=== PATIENT | male | born 1945 | race Hispanic/Latino ===

== ENCOUNTER 2021-06-09 15:06 | Inpatient (IN) | payer OTHER ==
[~2021-06-09] VITALS: Ht 154.9 cm; Wt 83.2 kg
[2021-06-09 16:17] VITALS: BP 156/79
[2021-06-09 16:28] LABS: HEMATOCRIT 31.4 % (42-54); MEAN CORPUSCULAR HGB CONC 32.5 g/dL (32.0-36.0); MEAN CORPUSCULAR VOLUME 95.4 fL (79-99); RED BLOOD CELL COUNT(AUTO) 3.29 MIL/uL (4.50-6.20); RED CELL DISTRIBUTION WIDTH 14.5 % (11.0-15.5); WHITE BLOOD COUNT (AUTO) 12.4 K/uL (4.8-10.8)
[2021-06-09] MEDS ORDERED: DEXTROSE 50%-WATER 50 ML DISP.SYRIN IV PRN (16:30)
[2021-06-09] MEDS ORDERED: DiphenhydrAMINE HCL 50 MG/ML VIAL IV PRN (16:30)
[2021-06-09] MEDS ORDERED: GLUCAGON 1MG KIT 1 MG ML IM PRN (16:30)
[2021-06-09] MEDS: INSULIN HUMULIN R 100 UNIT/ML 3ML SQ SCH ×2 (16:30→21:06)
[2021-06-09] MEDS ORDERED: ONDANSETRON 4MG INJ IV PRN (16:30)
[2021-06-09] MEDS ORDERED: ACETAMINOPHEN 325 MG TAB PO PRN ×2 (16:30)
[2021-06-09] MEDS ORDERED: LACTATED RINGERS 1000ML 1,000 ML IV SCH (16:30)
[2021-06-09] MEDS ORDERED: HYDRALAZINE 20MG/ML VIAL IV PRN (16:30)
[2021-06-09 16:40] LABS: INR 1.11 (0.85-1.15)
[2021-06-09 16:42] LABS: PARTIAL THROMBOPLASTIN TIME 69.9 SEC (26.3-35.5)
[2021-06-09 16:48] LABS: CREATININE 1.4 mg/dL (0.5-1.5); POTASSIUM 4.5 mmol/L (3.5-5.1)
[2021-06-09] MEDS ORDERED: VALS320T16 PO (17:52)
[2021-06-09] MEDS ORDERED: ATOR40TA69 PO (17:52)
[2021-06-09] MEDS ORDERED: ASPI-1197 PO (17:52)
[2021-06-09] MEDS ORDERED: METO100T14 PO (17:52)
[2021-06-09] MEDS ORDERED: METF-446 PO (17:52)
[2021-06-09] MEDS ORDERED: TAMS-1 PO (17:52)
[2021-06-09] MEDS ORDERED: LACTATED RINGERS 1000ML 1,000 ML IV ONE (20:40)
[2021-06-09 20:45] VITALS: BP 112/66
[2021-06-09] MEDS: LACTATED RINGERS 1000ML 1,000 ML IV SCH (20:53)
[2021-06-09] MEDS: FAMOTIDINE 20MG VIAL IV SCH (20:54)
[2021-06-09 23:54] VITALS: BP 115/64
[2021-06-09] MEDS: HEPARIN 25,000 UNITS/250ML D5W 250 ML IV SCH (23:57)
[2021-06-10 02:42] LABS: ALBUMIN 3.1 g/dL (3.5-5.0); BILIRUBIN,TOTAL 0.7 mg/dL (0.2-1.0); CREATININE 1.3 mg/dL (0.5-1.5); POTASSIUM 3.7 mmol/L (3.5-5.1); TOTAL PROTEIN, SERUM 6.4 g/dL (6.0-8.3)
[2021-06-10 02:44] LABS: BASOPHILS % (AUTO) 0.9 % (0.0-5.0); EOSINOPHILS % (AUTO) 1.1 % (0.0-8.0); HEMATOCRIT 26.6 % (42-54); MEAN CORPUSCULAR HEMOGLOBIN 30.6 pg (27.0-33.0); MEAN CORPUSCULAR HGB CONC 32.7 g/dL (32.0-36.0); MEAN CORPUSCULAR VOLUME 93.7 fL (79-99); MONOCYTES % (AUTO) 9.7 % (3.0-13.0); PLATELET COUNT (AUTO) 171 K/uL (130-400); RED BLOOD CELL COUNT(AUTO) 2.84 MIL/uL (4.50-6.20); RED CELL DISTRIBUTION WIDTH 14.3 % (11.0-15.5); WHITE BLOOD COUNT (AUTO) 10.7 K/uL (4.8-10.8)
[2021-06-10] MEDS: HEPARIN 25,000 UNITS/250ML D5W 250 ML IV SCH ×2 (04:03→09:01)
[2021-06-10 04:11] VITALS: BP 112/66
[2021-06-10] MEDS: INSULIN HUMULIN R 100 UNIT/ML 3ML SQ SCH ×4 (05:00→20:16)
[2021-06-10 08:21] VITALS: BP 112/61
[2021-06-10] MEDS: FAMOTIDINE 20MG VIAL IV SCH ×2 (09:50→20:08)
[2021-06-10] MEDS ORDERED: TICAGRELOR 90 MG TABLET PO SCH ×2 (10:57→21:00)
[2021-06-10 11:08] VITALS: BP 97/53
[2021-06-10 11:20] LABS: HEMATOCRIT 28.9 % (42-54)
[2021-06-10] MEDS: ASPIRIN 81MG CHEW TAB PO SCH (11:22)
[2021-06-10 16:17] VITALS: BP 97/59
[2021-06-10] MEDS: METOPROLOL TARTRATE 50 MG TAB PO SCH (20:08)
[2021-06-10] MEDS: ATORVASTATIN 40 MG TABLET PO SCH (20:08)
[2021-06-10 21:01] VITALS: BP 129/65
[2021-06-10 23:48] VITALS: BP 128/75
[2021-06-11] VITALS (29 sets, daily range): BP systolic 84–166; BP diastolic 58–82
[2021-06-11] MEDS ORDERED: METOPROLOL TARTRATE 1 MG/ML 5ML VIAL IV ONE ×6 (01:00→05:30)
[2021-06-11 01:19] LABS: HEMATOCRIT 28.7 % (42-54); MEAN CORPUSCULAR HEMOGLOBIN 30.7 pg (27.0-33.0); MEAN CORPUSCULAR HGB CONC 32.4 g/dL (32.0-36.0); MEAN CORPUSCULAR VOLUME 94.7 fL (79-99); PLATELET COUNT (AUTO) 178 K/uL (130-400); RED BLOOD CELL COUNT(AUTO) 3.03 MIL/uL (4.50-6.20); RED CELL DISTRIBUTION WIDTH 14.4 % (11.0-15.5); WHITE BLOOD COUNT (AUTO) 13.4 K/uL (4.8-10.8)
[2021-06-11 01:32] LABS: BASOPHILS % (AUTO) 0.6 % (0.0-5.0); EOSINOPHILS % (AUTO) 0.7 % (0.0-8.0); LYMPHOCYTES % (AUTO) 13.2 % (21.0-51.0); MONOCYTES % (AUTO) 6.6 % (3.0-13.0); NEUTROPHILS % (AUTO) 78.5 % (40.0-77.0)
[2021-06-11 01:35] LABS: CREATININE 1.4 mg/dL (0.5-1.5); POTASSIUM 3.6 mmol/L (3.5-5.1)
[2021-06-11 01:45] LABS: ALBUMIN 3.6 g/dL (3.5-5.0); BILIRUBIN,TOTAL 1.1 mg/dL (0.2-1.0); MAGNESIUM 1.6 mg/dL (1.80-2.40); TOTAL PROTEIN, SERUM 7.6 g/dL (6.0-8.3)
[2021-06-11] MEDS ORDERED: KCL 20 MEQ ERTAB PO ONE ×2 (01:53→02:00)
[2021-06-11] MEDS ORDERED: MAGNESIUM 2GM PREMIX 50ML 50 ML IV ONE (02:09)
[2021-06-11] MEDS ORDERED: MAGNESIUM 2GM PREMIX 50ML 50 ML IV SCH (02:30)
[2021-06-11] MEDS ORDERED: DILTIAZEM 125 MG/25 ML INJ 125 MG in 0.9%NACL 100ML 100 ML IV SCH (02:30)
[2021-06-11] MEDS: LACTATED RINGERS 1000ML 1,000 ML IV SCH (06:11)
[2021-06-11] MEDS: INSULIN HUMULIN R 100 UNIT/ML 3ML SQ SCH ×4 (07:30→21:58)
[2021-06-11] MEDS: METOPROLOL TARTRATE 50 MG TAB PO SCH ×2 (09:10→21:31)
[2021-06-11] MEDS ORDERED: PROPOFOL 10 MG/ML 20ML VIAL IV ONE (09:48)
[2021-06-11] MEDS ORDERED: IPRATROPIUM/ALBUTEROL SULFATE 3 ML SOLUTION IH ONE (10:14)
[2021-06-11] MEDS: FAMOTIDINE 20MG VIAL IV SCH ×2 (11:53→21:31)
[2021-06-11] MEDS: ASPIRIN 81MG CHEW TAB PO SCH (11:53)
[2021-06-11] MEDS: FUROSEMIDE 20MG VIAL IV SCH (19:35)
[2021-06-11] MEDS ORDERED: PEG 3350/NA SULF,BICARB,CL/KCL 4000 ML SOLN PO ONE (20:00)
[2021-06-11] MEDS ORDERED: HEPARIN 5,000 UNIT VIAL ONE (20:22)
[2021-06-11] MEDS: HEPARIN 25,000 UNITS/250ML D5W 250 ML IV SCH (20:40)
[2021-06-11] MEDS ORDERED: INSULIN GLARGINE 100 UNITS/ML 10 ML VIAL SQ SCH (21:00)
[2021-06-11] MEDS: ATORVASTATIN 40 MG TABLET PO SCH (21:31)
[2021-06-12] MEDS ORDERED: IPRATROPIUM/ALBUTEROL SULFATE 3 ML SOLUTION IH ONE (00:41)
[2021-06-12 03:26] LABS: BASOPHILS % (AUTO) 0.4 % (0.0-5.0); EOSINOPHILS % (AUTO) 0.2 % (0.0-8.0); HEMATOCRIT 26.1 % (42-54); LYMPHOCYTES % (AUTO) 11.1 % (21.0-51.0); MEAN CORPUSCULAR HEMOGLOBIN 30.7 pg (27.0-33.0); MEAN CORPUSCULAR HGB CONC 32.2 g/dL (32.0-36.0); MEAN CORPUSCULAR VOLUME 95.3 fL (79-99); MONOCYTES % (AUTO) 10.4 % (3.0-13.0); NEUTROPHILS % (AUTO) 77.5 % (40.0-77.0); PLATELET COUNT (AUTO) 170 K/uL (130-400); RED BLOOD CELL COUNT(AUTO) 2.74 MIL/uL (4.50-6.20); RED CELL DISTRIBUTION WIDTH 14.4 % (11.0-15.5); WHITE BLOOD COUNT (AUTO) 11.6 K/uL (4.8-10.8)
[2021-06-12 03:35] LABS: HEMOGLOBIN A1C 7.7 % (4.0-6.0)
[2021-06-12 04:05] LABS: CREATININE 1.3 mg/dL (0.5-1.5); PHOSPHORUS 2.9 mg/dL (2.5-4.9); POTASSIUM 3.8 mmol/L (3.5-5.1); THYROID STIMULATING HORMONE 0.67 uIU/mL (0.36-3.74)
[2021-06-12 04:07] VITALS: BP 100/55
[2021-06-12 04:19] LABS: % IRON SATURATION 4.9 % (30-44)
[2021-06-12 04:26] LABS: B-TYPE NATRIURETIC PEPTIDE 1620 pg/mL (0-100)
[2021-06-12] MEDS: FUROSEMIDE 20MG VIAL IV SCH ×2 (04:49→15:39)
[2021-06-12] MEDS: INSULIN HUMULIN R 100 UNIT/ML 3ML SQ SCH ×4 (06:35→20:11)
[2021-06-12 07:30] VITALS: BP 115/61
[2021-06-12] MEDS ORDERED: INSULIN HUMULIN R 100 UNIT/ML 3ML SQ SCH (07:30)
[2021-06-12] MEDS: METOPROLOL TARTRATE 50 MG TAB PO SCH ×2 (10:50→19:41)
[2021-06-12] MEDS: ASPIRIN 81MG CHEW TAB PO SCH (10:50)
[2021-06-12] MEDS: TAMSULOSIN HCL 0.4 MG CAP.ER.24H PO SCH (10:51)
[2021-06-12] MEDS: FAMOTIDINE 20MG TAB PO SCH (10:51)
[2021-06-12 12:00] VITALS: BP 120/64
[2021-06-12] MEDS ORDERED: METOPROLOL TARTRATE 1 MG/ML 5ML VIAL IV ONE ×2 (13:17→13:30)
[2021-06-12 16:00] VITALS: BP 107/59
[2021-06-12] MEDS ORDERED: PEG 3350/NA SULF,BICARB,CL/KCL 4000 ML SOLN PO SCH (16:00)
[2021-06-12] MEDS ORDERED: PERFLUTREN PROTEIN-A MICROSPHR 0.22 MG/ML VIAL IV ONE (16:00)
[2021-06-12] MEDS ORDERED: DILTIAZEM 25MG INJ IVP SCH ×2 (19:32→20:04)
[2021-06-12] MEDS ORDERED: DILTIAZEM 50MG VIAL IV ONE (19:36)
[2021-06-12] MEDS: ATORVASTATIN 40 MG TABLET PO SCH (19:40)
[2021-06-12] MEDS: HEPARIN 25,000 UNITS/250ML D5W 250 ML IV SCH (20:40)
[2021-06-12 23:44] VITALS: BP 92/51
[2021-06-13] VITALS (26 sets, daily range): BP systolic 62–139; BP diastolic 45–79
[2021-06-13 03:42] LABS: BASOPHILS % (AUTO) 0.5 % (0.0-5.0); EOSINOPHILS % (AUTO) 1.5 % (0.0-8.0); HEMATOCRIT 26.4 % (42-54); LYMPHOCYTES % (AUTO) 14.7 % (21.0-51.0); MEAN CORPUSCULAR HEMOGLOBIN 30.4 pg (27.0-33.0); MEAN CORPUSCULAR HGB CONC 32.6 g/dL (32.0-36.0); MEAN CORPUSCULAR VOLUME 93.3 fL (79-99); MONOCYTES % (AUTO) 7.8 % (3.0-13.0); NEUTROPHILS % (AUTO) 75.1 % (40.0-77.0); PLATELET COUNT (AUTO) 196 K/uL (130-400); RED BLOOD CELL COUNT(AUTO) 2.83 MIL/uL (4.50-6.20); RED CELL DISTRIBUTION WIDTH 14.1 % (11.0-15.5); WHITE BLOOD COUNT (AUTO) 10.4 K/uL (4.8-10.8)
[2021-06-13 03:48] LABS: CREATININE 1.3 mg/dL (0.5-1.5); POTASSIUM 3.7 mmol/L (3.5-5.1)
[2021-06-13] MEDS ORDERED: METOPROLOL TARTRATE 1 MG/ML 5ML VIAL IV ONE (04:58)
[2021-06-13] MEDS ORDERED: METOPROLOL TARTRATE 1 MG/ML 5ML VIAL IV PRN (05:00)
[2021-06-13] MEDS: METOPROLOL TARTRATE 1 MG/ML 5ML VIAL IV PRN ×2 (05:24→08:48)
[2021-06-13] MEDS ORDERED: PHARMACY COMMUNICATION MISC SCH (05:30)
[2021-06-13] MEDS: INSULIN HUMULIN R 100 UNIT/ML 3ML SQ SCH ×4 (05:33→19:59)
[2021-06-13] MEDS: ASPIRIN 81MG CHEW TAB PO SCH (08:20)
[2021-06-13] MEDS: TAMSULOSIN HCL 0.4 MG CAP.ER.24H PO SCH (08:20)
[2021-06-13] MEDS: FAMOTIDINE 20MG TAB PO SCH (08:20)
[2021-06-13] MEDS: FUROSEMIDE 20MG VIAL IV SCH ×2 (08:22→20:11)
[2021-06-13] MEDS: METOPROLOL TARTRATE 50 MG TAB PO SCH ×3 (08:26→20:12)
[2021-06-13] MEDS ORDERED: PROPOFOL 10 MG/ML 20ML VIAL IV ONE ×2 (11:25→11:26)
[2021-06-13] MEDS ORDERED: LIDOCAINE HCL 1% 20 ML VIAL ONE (11:26)
[2021-06-13] MEDS ORDERED: EPOETIN ALFA-EPBX (NON-ESRD) 10,000 UNIT/ML VIAL SQ SCH (13:30)
[2021-06-13] MEDS ORDERED: IRON SUCROSE COMPLEX 500 MG in 0.9%NACL 50ML 50 ML IV SCH (13:30)
[2021-06-13 13:55] LABS: ABG BASE EXCESS -2.2 mmol/L (-2.0-3.0); ABG HCO3 20.9 mmol/L (21.0-28.0); ABG OXYGEN SATURATION 94.5 % (95.0-99.0); ABG PCO2 30 mmHg (35-48)
[2021-06-13] MEDS ORDERED: COMPOUND IV MISC 1 EACH IVSOLN MISC PRN (14:00)
[2021-06-13] MEDS: ATORVASTATIN 40 MG TABLET PO SCH (20:11)
[2021-06-14] VITALS: BP 149/72
[2021-06-14] MEDS: METOPROLOL TARTRATE 1 MG/ML 5ML VIAL IV PRN ×3 (02:02→02:12)
[2021-06-14 04:00] VITALS: BP 126/66
[2021-06-14] MEDS: METOPROLOL TARTRATE 50 MG TAB PO SCH ×3 (04:23→20:08)
[2021-06-14 06:03] LABS: BASOPHILS % (AUTO) 0.6 % (0.0-5.0); EOSINOPHILS % (AUTO) 1.6 % (0.0-8.0); HEMATOCRIT 27.4 % (42-54); LYMPHOCYTES % (AUTO) 10.3 % (21.0-51.0); MEAN CORPUSCULAR HEMOGLOBIN 30.6 pg (27.0-33.0); MEAN CORPUSCULAR HGB CONC 32.5 g/dL (32.0-36.0); MEAN CORPUSCULAR VOLUME 94.2 fL (79-99); MONOCYTES % (AUTO) 8.4 % (3.0-13.0); NEUTROPHILS % (AUTO) 78.6 % (40.0-77.0); PLATELET COUNT (AUTO) 232 K/uL (130-400); RED BLOOD CELL COUNT(AUTO) 2.91 MIL/uL (4.50-6.20); WHITE BLOOD COUNT (AUTO) 10.7 K/uL (4.8-10.8)
[2021-06-14 06:16] LABS: CREATININE 1.2 mg/dL (0.5-1.5); MAGNESIUM 1.8 mg/dL (1.80-2.40); POTASSIUM 3.9 mmol/L (3.5-5.1)
[2021-06-14] MEDS: HEPARIN 25,000 UNITS/250ML D5W 250 ML IV SCH (06:51)
[2021-06-14] MEDS: INSULIN HUMULIN R 100 UNIT/ML 3ML SQ SCH ×4 (06:51→21:51)
[2021-06-14] MEDS ORDERED: IOHEXOL-350 50ML VIAL IV ONE (07:26)
[2021-06-14] MEDS ORDERED: BIVALIRUDIN 250 MG/VIAL IV ONE (07:26)
[2021-06-14] MEDS ORDERED: NICARDIPINE 25MG INJ IV ONE (07:26)
[2021-06-14] MEDS ORDERED: IOHEXOL 350 MG/ML 100ML INFUS..BTL IV ONE ×3 (07:26→09:49)
[2021-06-14] MEDS ORDERED: NITROGLYCERIN 2 MG VIAL IV ONE (07:26)
[2021-06-14] MEDS ORDERED: HEPARIN 10,000 UNIT/10ML (1,000 UNIT/ML) VIAL ONE (07:26)
[2021-06-14] MEDS ORDERED: LIDOCAINE HCL 400MG/20ML VIAL ONE (07:27)
[2021-06-14] MEDS ORDERED: FENTANYL CITRATE PF 50 MCG/1 ML 2ML VIAL ONE (07:35)
[2021-06-14] MEDS ORDERED: MIDAZOLAM HCL 1 MG/ML 2ML VIAL ONE (07:35)
[2021-06-14 07:45] VITALS: BP 137/70
[2021-06-14] MEDS: FUROSEMIDE 20MG VIAL IV SCH ×2 (08:49→20:09)
[2021-06-14] MEDS: ASPIRIN 81MG CHEW TAB PO SCH (08:49)
[2021-06-14] MEDS: TAMSULOSIN HCL 0.4 MG CAP.ER.24H PO SCH (08:49)
[2021-06-14] MEDS: FAMOTIDINE 20MG TAB PO SCH (08:49)
[2021-06-14] MEDS ORDERED: TICAGRELOR 90 MG TABLET ONE (09:27)
[2021-06-14] MEDS ORDERED: ASPIRIN 325MG EC TAB PO ONE (09:27)
[2021-06-14] MEDS ORDERED: FUROSEMIDE 40MG VIAL ONE (10:39)
[2021-06-14] MEDS ORDERED: 0.9%NACL 1000ML 1,000 ML IV SCH (11:00)
[2021-06-14 16:30] VITALS: BP 127/57
[2021-06-14] MEDS: RIVAROXABAN 20 MG TABLET PO SCH (17:18)
[2021-06-14] MEDS: ATORVASTATIN 40 MG TABLET PO SCH (20:08)
[2021-06-14 20:36] VITALS: BP 116/63
[2021-06-15] VITALS (7 sets, daily range): BP systolic 105–127; BP diastolic 49–94
[2021-06-15] MEDS: METOPROLOL TARTRATE 50 MG TAB PO SCH ×3 (05:00→20:42)
[2021-06-15 05:13] LABS: HEMATOCRIT 26.5 % (42-54); MEAN CORPUSCULAR HEMOGLOBIN 30.2 pg (27.0-33.0); MEAN CORPUSCULAR HGB CONC 32.8 g/dL (32.0-36.0); RED BLOOD CELL COUNT(AUTO) 2.88 MIL/uL (4.50-6.20); RED CELL DISTRIBUTION WIDTH 13.8 % (11.0-15.5)
[2021-06-15 05:30] LABS: CREATININE 1.4 mg/dL (0.5-1.5)
[2021-06-15 05:51] LABS: POTASSIUM 2.8 mmol/L (3.5-5.1)
[2021-06-15] MEDS: INSULIN HUMULIN R 100 UNIT/ML 3ML SQ SCH ×4 (05:58→20:49)
[2021-06-15] MEDS ORDERED: KCL 20 MEQ ERTAB PO ONE ×2 (08:00→14:30)
[2021-06-15] MEDS: ISOSORBIDE MONO 30MG SR TAB PO SCH (09:06)
[2021-06-15] MEDS: METOPROLOL TARTRATE 1 MG/ML 5ML VIAL IV PRN (09:44)
[2021-06-15] MEDS: ASPIRIN 81MG CHEW TAB PO SCH (09:46)
[2021-06-15] MEDS: FUROSEMIDE 20MG VIAL IV SCH (09:46)
[2021-06-15] MEDS: CLOPIDOGREL 75MG TAB PO SCH (09:47)
[2021-06-15] MEDS: LINAGLIPTIN 5 MG TABLET PO SCH (09:47)
[2021-06-15] MEDS: TAMSULOSIN HCL 0.4 MG CAP.ER.24H PO SCH (09:47)
[2021-06-15] MEDS: RIVAROXABAN 20 MG TABLET PO SCH (09:47)
[2021-06-15] MEDS: FAMOTIDINE 20MG TAB PO SCH (09:48)
[2021-06-15] MEDS ORDERED: KCL 20 MEQ ERTAB PO SCH (10:00)
[2021-06-15 13:47] LABS: MAGNESIUM 2.3 mg/dL (1.80-2.40); POTASSIUM 3.7 mmol/L (3.5-5.1)
[2021-06-15] MEDS ORDERED: FUROSEMIDE 20MG VIAL IV SCH (14:00)
[2021-06-15] MEDS: ATORVASTATIN 40 MG TABLET PO SCH (20:43)
[2021-06-16 04:17] VITALS: BP 128/70
[2021-06-16 05:25] LABS: BASOPHILS % (AUTO) 0.7 % (0.0-5.0); EOSINOPHILS % (AUTO) 4.9 % (0.0-8.0); HEMATOCRIT 26.2 % (42-54); LYMPHOCYTES % (AUTO) 17.9 % (21.0-51.0); MEAN CORPUSCULAR HEMOGLOBIN 30.5 pg (27.0-33.0); MEAN CORPUSCULAR HGB CONC 32.8 g/dL (32.0-36.0); MEAN CORPUSCULAR VOLUME 92.9 fL (79-99); MONOCYTES % (AUTO) 8.8 % (3.0-13.0); NEUTROPHILS % (AUTO) 67.1 % (40.0-77.0); PLATELET COUNT (AUTO) 257 K/uL (130-400); RED BLOOD CELL COUNT(AUTO) 2.82 MIL/uL (4.50-6.20); RED CELL DISTRIBUTION WIDTH 13.7 % (11.0-15.5); WHITE BLOOD COUNT (AUTO) 10.2 K/uL (4.8-10.8)
[2021-06-16 05:38] LABS: CREATININE 1.5 mg/dL (0.5-1.5); POTASSIUM 3.1 mmol/L (3.5-5.1)
[2021-06-16] MEDS: INSULIN HUMULIN R 100 UNIT/ML 3ML SQ SCH ×2 (07:30→11:53)
[2021-06-16 08:53] VITALS: BP 115/61
[2021-06-16] MEDS ORDERED: FUROSEMIDE 40 MG TABLET PO SCH (09:00)
[2021-06-16] MEDS: ISOSORBIDE MONO 30MG SR TAB PO SCH (09:55)
[2021-06-16] MEDS: TAMSULOSIN HCL 0.4 MG CAP.ER.24H PO SCH (09:55)
[2021-06-16] MEDS: METOPROLOL TARTRATE 50 MG TAB PO SCH (09:55)
[2021-06-16] MEDS: RIVAROXABAN 20 MG TABLET PO SCH (09:55)
[2021-06-16] MEDS: LINAGLIPTIN 5 MG TABLET PO SCH (09:56)
[2021-06-16] MEDS: ASPIRIN 81MG CHEW TAB PO SCH (09:57)
[2021-06-16] MEDS: CLOPIDOGREL 75MG TAB PO SCH (09:58)
[2021-06-16] MEDS: FAMOTIDINE 20MG TAB PO SCH (09:58)
[2021-06-16] MEDS ORDERED: ISOS30TA92 PO (10:03)
[2021-06-16] MEDS ORDERED: RIVA20TA PO (10:03)
[2021-06-16] MEDS ORDERED: CLOP75TA32 PO (10:03)
[2021-06-16] MEDS ORDERED: FURO40TA5 PO (10:03)
[2021-06-16] MEDS ORDERED: METO25TA6 PO (10:03)
[2021-06-16] MEDS ORDERED: POTA-202 PO (10:18)
[2021-06-16] MEDS ORDERED: KCL 20 MEQ ERTAB PO SCH (10:30)
== END 2021-06-16 14:49 | disposition home or self-care (01) | DRG 280 ==
LOC: 4BH 15:33 → 4DH 06-12 08:57
PROVIDERS: ADMIT Internal Medicine; ATTEND Internal Medicine
PROC: 5A09357 Assistance with Respiratory Ventilation, Less than 24 Consecutive Hours, Continuous Positive Airway Pressure (ICD-10-PCS; 2021-06-11)
PROC: 0DJ08ZZ Inspection of Upper Intestinal Tract, Via Natural or Artificial Opening Endoscopic (ICD-10-PCS; 2021-06-11)
PROC: 5A09357 Assistance with Respiratory Ventilation, Less than 24 Consecutive Hours, Continuous Positive Airway Pressure (ICD-10-PCS; 2021-06-12)
PROC: 0DJD8ZZ Inspection of Lower Intestinal Tract, Via Natural or Artificial Opening Endoscopic (ICD-10-PCS; 2021-06-13)
PROC: 4A023N7 Measurement of Cardiac Sampling and Pressure, Left Heart, Percutaneous Approach (ICD-10-PCS; principal; 2021-06-14)
PROC: B2111ZZ Fluoroscopy of Multiple Coronary Arteries using Low Osmolar Contrast (ICD-10-PCS; 2021-06-14)
PROC: 02JA3ZZ Inspection of Heart, Percutaneous Approach (ICD-10-PCS; 2021-06-14)
DX: I21.4 Non-ST elevation (NSTEMI) myocardial infarction (principal); J96.01 Acute respiratory failure with hypoxia; K57.31 Diverticulosis of large intestine without perforation or abscess with bleeding; I50.33 Acute on chronic diastolic (congestive) heart failure; D62 Acute posthemorrhagic anemia; I47.1 Supraventricular tachycardia; E11.9 Type 2 diabetes mellitus without complications; I25.10 Atherosclerotic heart disease of native coronary artery without angina pectoris; K64.8 Other hemorrhoids; E78.5 Hyperlipidemia, unspecified; N40.0 Benign prostatic hyperplasia without lower urinary tract symptoms; I11.0 Hypertensive heart disease with heart failure; I48.0 Paroxysmal atrial fibrillation; I35.0 Nonrheumatic aortic (valve) stenosis; Z87.891 Personal history of nicotine dependence; Z95.1 Presence of aortocoronary bypass graft
CPT/HCPCS: 36415; 36600; 43235; 45378; 71046; 80048; 80053; 82270; 82435; 82550; 82607; 82728; 82746; 82803; 82947; 82948; 83036; 83540; 83550; 83605; 83735; 83874; 83880; 84100; 84132; 84295; 84443; 84484; 85014; 85018; 85025; 85027; 85045; 85610; 85730; 86850; 86900; 86901; 92920; 93005; 93306; 93455; 94640; 94660; 99156; 99157; A4606; C1769; C1894; G0378; J0583; J1200; J1644; J1756; J1815; J1940; J2250; J2704; J3010; J3475; J3490; J7030; J7120; Q9967